=== PATIENT | female | born 1985 | race Caucasian/White ===

== ENCOUNTER → 2018-05-23 | Outpatient (CLI) | payer OTHER | LOC: M PAIN 14:00 | DX: M79.7 Fibromyalgia (principal); F32.9 Major depressive disorder, single episode, unspecified; F41.9 Anxiety disorder, unspecified; M54.5 Low back pain; Z79.899 Other long term (current) drug therapy; Z88.0 Allergy status to penicillin; Z88.6 Allergy status to analgesic agent | CPT/HCPCS: G0463 ==

== ENCOUNTER → 2018-10-18 | Outpatient (CLI) | payer OTHER ==
[~2018-10-18] MED LIST: CALCTAB22 OR; CLAR5CHW; CLAR5CHW OR; CLAR5CHW PO; DARV100T; DOCU10CA PO; FERR325T; FERR325T OR; IBUP600T26 PO; LYRI75CA OR; PHEN100T2 OR; PREG100CA OR; PREG50CA; SOMA350T OR; TRAM50TA2; TRAM50TA2 OR; ZOLO100T PO; ZYVO100T OR; [UNRECOGNIZED DRUG - OTHER] PO; prenatal vitamin OR
--- NOTE | 2018-11-01 00:56 | ECWPNPC ---
PATIENT NAME: CLARISSA ROMERO : 1985 GENDER: FEMALE VISIT DATE: 10/18/2018 DISCHARGE DATE: 10/18/18 1157 VISIT LOCKED DATE TIME: PHYSICIAN: ANTONELLA WARE RESOURCE: ANTONELLA WARE REASON FOR APPOINTMENT 1. FIBRO HISTORY OF PRESENT ILLNESS HISTORY OF PRESENT ILLNESS: HERE FOR F/U AND EVALUATION OF CHRONIC BACK PAIN/FIBROMYALGIA.USING TRAMADOL 50MG 1-2 TAB DAILY PRN FOR SEVERE PAIN.RATING PAIN VAS 7/10.REPORTING IMPROVED TOLERANCE TO WORK DUTIES.REPORTING IMPROVED ABILITY TO TOLERATE LIFTING HER BABY. PAIN THE PATIENT DESCRIBES THE PAIN... THE PATIENT DESCRIBES THE PAIN... FALL RISK SCREENING: SCREENING :NO FALLS REPORTED IN THE LAST YEAR CURRENT MEDICATIONS TAKING TRAMADOL HCL 50 MG TABLET 1 TABLET NEEDED ORALLY Q8H MDD3 NOT-TAKING CYMBALTA 30 MG CAPSULE DELAYED RELEASE PARTICLES 1 CAPSULE ORALLY ONCE A DAY NOT-TAKING CUSTOM DO NOT USE TRAMADOL 50 MG TABLET 1 TABLET ORALLY EVERY 4-6 HOURS NEEDED (PAIN CLINIC) NOT-TAKING LYRICA 75 MG CAPSULE 1 CAPSULE ORALLY ONCE A DAY (PAIN CLINIC) NOT-TAKING SOMA 350 MG 30 350 MG TABLET ONE TABLET ORALLY EVERY 8 HOURS NEEDED FOR PAIN(PAIN CLINIC) NOT-TAKING ZOLOFT NOT-TAKING TRAMADOL HCL 50 MG TABLET 1 TABLET NEEDED ORALLY Q8H PRN MDD3 MEDICATION LIST REVIEWED AND RECONCILED WITH THE PATIENT PAST MEDICAL HISTORY FIBROMYALGIA ARTHRITIS DEPRESSION ANXIETY POSSIBLE ULCERS LOW BACK PAIN MYOFASCIAL PAIN SYNDROME GENERALIZED JOINT PAIN ALLERGIES PENICILLIN (FOR ALLERGIES USE ONLY): NAUSEA/VOMITING - SIDE EFFECTS MOTRIN: HIVES - ALLERGY SURGICAL HISTORY 01/03 FAMILY HISTORY MOTHER: 1 BROTHER(S) , 1 SISTER(S) - HEALTHY. 1 SON(S) , 1 DAUGHTER(S) - HEALTHY. SOCIAL HISTORY GENERAL: TOBACCO USE ARE YOU A: NONSMOKER . LATEX QUESTIONNAIRE LATEX ALLERGY : HAVE YOU EVER DEVELOPED ANY TYPE OF REACTION AFTER HANDLING LATEX PRODUCTS SUCH RUBBER GLOVES, CONDOMS, DIAPHRAGMS, BALLOONS, SOCKS, OR UNDERWEAR?NO LATEX ALLERGY : HAVE YOU EVER DEVELOPED ANY TYPE OF REACTION DURING OR AFTER DENTAL APPOINTMENT, VAGINAL/RECTAL EXAMINATION, SURGICAL PROCEDURE, OR ANY OTHER EXPOSURE?NO LATEX RISK : HAVE YOU EVER HAD ANY DIFFICULTY BREATHING OR HIVES AFTER EATING OR HANDLING ANY FRUITS, OR VEGETABLES; SUCH KIWI, BANANAS, STONE FRUITS, OR CHESTNUTSNO LATEX RISK : DO YOU HAVE A PREVIOUS PERSONAL HISTORY OF MORE THAN NINE SURGERIES, SPINA BIFIDA, OR REPEATED CATHERTIZATIONS? NO LATEX RISK : ARE YOU FREQUENTLY EXPOSED TO LATEX PRODUCTS IN YOUR OCCUPATION?NO DATE ASKED : 10/18/2018 RECREATIONAL DRUG USE DRUG USE?NO BUDDHISM [id number] SIKHISM LANGUAGE LANGUAGES SPOKEN:MACANESE EDUCATION LEVEL OF EDUCATION:HIGH SCHOOL LEARNING BARRIERS / SPECIAL NEEDS ORIENTED TO PLAN OF CARE: PATIENT, PAIN MANAGEMENT PATIENT, ORIENTED TO PLAN OF CARE: PATIENT, PAIN MANAGEMENT PATIENT. 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 DIET: REGULAR. MARITAL STATUS: . OTHERS AT HOME: SPOUSE, CHILDREN. NEW PATIENT PAIN DIARY TODAY'S VISITNOTES FROM 0-10, WHAT LEVEL IS YOUR PAIN TODAY?0 PAIN CLINIC PFS, CLERGY, PUBLIC HEALTH REFERRALS PFS REFERRAL NEEDED?NO CLERGY REFERRAL NEEDED?NO PUBLIC HEALTH REFERRAL NEEDED?NO WAS THE PROVIDER NOTIFIED OF ANY PERTINENT INFO?NO HAS THE PATIENT BEEN EDUCATED REGARDING HIS/HER PLAN OF CARE?YES HAS THE PATIENT BEEN EDUCATED REGARDING PAIN, THE RISK FOR PAIN, THE IMPORTANCE OF EFFECTIVE PAIN MANAGEMENT, AND THE PAIN ASSESSMENT PROCESS?YES ADVANCE DIRECTIVE ADVANCE DIRECTIVE DISCUSSED WITH PATIENT:YES DECLINED HCP INFORMATION REVIEWED WITH PATIENT 10/18/18 1104 JS. HOSPITALIZATION/MAJOR DIAGNOSTIC PROCEDURE CHILD 01/03 REVIEW OF SYSTEMS REVIEWED BY: PROVIDER: ANTONELLA NELSON . CONSTITUTIONAL: ANY CHANGE IN YOUR MEDICAL CONDITION? NO . CHILLS NO . FEVER NO . INFECTION: DO YOU HAVE NEW INFECTIONS? NO . DO YOU HAVE HISTORY OF MRSA? NO . MUSCULOSKELETAL: ANY NEW PATTERNS OF PAIN OR NUMBNESS? NO . GASTROENTEROLOGY: ANY NEW CHANGE IN BOWEL CONTROL? NO . GENITOURINARY: ANY NEW CHANGE IN BLADDER CONTROL? NO . IS THERE A CHANCE YOU COULD BE ? NO . HEMATOLOGY/LYMPH: DO YOU TAKE ANY BLOOD THINNERS? (FOR EXAMPLE- COUMADIN, PLAVIX, AGGRENOX, PLATEL, PRADAXA, OR XARELTO) NO . WHEN WAS YOUR LAST DOSE? DATE: TIME: . NEUROLOGY: HAVE YOU FALLEN IN THE PAST 12 MONTHS? NO . ANY NEW EXTREMITY NUMBNESS OR WEAKNESS? NO . CARDIOLOGY: DO YOU HAVE A PACEMAKER OR DEFIBRILLATOR? NO . RESPIRATORY: HAVE YOU BEEN SICK IN THE PAST WEEK? NO . FEVER NO . FLU LIKE SYMPTOMS? NO . COUGH NO . INTEGUMENTARY: DO YOU HAVE ANY RASHES OR OPEN SORES? NO . ALLERGIC/IMMUNO: ARE YOU ALLERGIC TO IV DYE? NO . ANY NEW ALLERGIES? NO . PSYCHIATRIC: DO YOU HAVE THOUGHTS OF HURTING YOURSELF OR SOMEONE ELSE? NO . ARE YOU ABUSED, NEGLECTED, OR IN AN UNSAFE ENVIRONMENT? NO . ENDOCRINOLOGY: ARE YOU DIABETIC? NO . OTHER: DO YOU NEED ANY PRESCRIPTIONS? YES . IF YES, PLEASE LIST: ____TRAMADOL . ANY NEW PROBLEMS WITH YOUR MEDICATIONS? NO . WHEN DID YOU LAST EAT? ____ . WHEN DID YOU LAST DRINK? ____ . WHAT DID YOU LAST DRINK? ____ . NAME OF PERSON DRIVING YOU HOME? ____ . DO YOU HAVE ANY OTHER QUESTIONS OR CONCERNS NO . VITAL SIGNS WT 124.4 LBS, HT 63 IN, BMI 22.03 INDEX, BP 125/59 MM HG, HR 92 /MIN, RR 16 /MIN, TEMP 97.8 F, OXYGEN SAT % 98%, SAFE IN ENV? (Y/N) YES, NA INITIALS NM 10:52, REVIEWED BY: RUDI. EXAMINATION GENERAL EXAMINATION: GENERAL APPEARANCE:ALERT,NO ACUTE DISTRESS. PSYCHAFFECT NORMAL. LUNGS:LUNG RAMOS ARE CLEAR TO AUSCULTATION BILATERALLY. GOOD MOVEMENT OF AIR. HEART:S1, S2 IN A REGULAR RATE AND RHYTHM. NO SIGNIFICANT MURMURS, RUBS OR GALLOPS NOTED. MUSCULOSKELETAL:MUSCLE STRENGTH TESTING 5/5 BILATERAL UPPER/LOWER EXTREMITIES MULTIPLE AREAS OF TENDER SPOTS UPPER AND LOWER EXTREMITIES BILATERALLY INDICATIVE OF FIBROMYALGIA. NEUROLOGIC EXAM:NORMAL SENSATION TO LIGHT TOUCH UPPER/LOWER EXTREMITIES. HIP / THIGH: HIP: RIGHT. INSPECTION: NO EFFUSION, ECCHYMOSIS OR DEFORMITIES. PALPATION: TENDERNESS OVER TROCHANTERIC BURSA. ASSESSMENTS FIBROMYALGIA - M79.7 TREATMENT FIBROMYALGIA REFILL TRAMADOL HCL TABLET, 50 MG, 1 TABLET NEEDED, ORALLY, Q8H MDD3, 30 DAY(S), 45, REFILLS 2 MARY ELLEN HIP COMPLETE (AP/LAT)[id number] NOTES: ISTOP REGISTRY REVIEWED AND DEMONSTRATES COMPLLIANCE. BRINGS IN MEDICATIONS WHICH IS APPROPRIATE FOR WHAT WAS DISPENSED. , RISKS AND BENEFITS OF NARCOTIC/OPIOD MEDICATIONS WERE REVIEWED WITH PATIENT - THIS INCLUDES BUT IS NOT LIMITED TO RISK OF DEPENDANCE/DEVELOPMENT OF ADDICTION, MOOD DISTURBANCE AND DEPRESSION, OSTEOPOROSIS, HORMONAL AND LABIDAL CHANGES, RESPIRATORY DEPRESSION AND . PATIENT IS ADVISED NOT TO DRIVE OR DRINK ALCOHOL WHILE ON THESE MEDICATIONS. PROCEDURE CODES FA211 ESTABILISHED PATIENT [facility] CHARGE DISPOSITION & COMMUNICATION FOLLOW UP 2 MONTHS ELECTRONICALLY SIGNED BY ANTONELLA NELSON, LESLIE ON 10/31/2018 AT 04:40 PM EDT DISCLAIMER : THIS IS A VISIT SUMMARY EXTRACTED FROM THE [employer] CHART. IT IS NOT A COPY OF THE [employer] PROGRESS NOTE. MATTHEW
== END ==
LOC: M PAIN 10:00
PROVIDERS: ATTEND Nurse Practitioner Family
DX: M79.7 Fibromyalgia (principal); M19.90 Unspecified osteoarthritis, unspecified site; Z86.59 Personal history of other mental and behavioral disorders; Z88.0 Allergy status to penicillin; Z88.6 Allergy status to analgesic agent

== ENCOUNTER → 2018-12-15 | Outpatient (REF) | payer OTHER ==
[2018-12-15 21:11] LABS: APPEARANCE, URINE CLEAR (CLEAR); BACTERIA, URINE AUTO NEGATIVE (NEGATIVE); BILIRUBIN, URINE AUTO NEGATIVE (NEGATIVE); BLOOD, URINE BLOOD NEGATIVE (NEGATIVE); COLOR, URINE YELLOW (YELLOW); GLUCOSE, URINE (UA) AUTO NEGATIVE (NEGATIVE); KETONE, URINE AUTO TRACE mg/dL (NEGATIVE); LEUKOCYTE ESTERASE, URINE AUTO TRACE (NEGATIVE); NITRITE, URINE AUTO NEGATIVE (NEGATIVE); PROTEIN, URINE AUTO NEGATIVE (NEGATIVE); RBC, URINE AUTO 0 /HPF (0-3); SQUAMOUS EPITHELIAL CELL UR AU 1 /HPF (0-6); UROBILINOGEN, URINE AUTO 0.2 mg/dL (0.0-2.0); WBC, URINE AUTO 2 /HPF (0-3)
== END ==
LOC: M LAB REF 09:20
PROVIDERS: ATTEND Physician Assistant Medical
DX: N39.0 Urinary tract infection, site not specified (principal)

== ENCOUNTER → 2018-12-22 | Outpatient (CLI) | payer OTHER ==
--- NOTE | 2019-01-04 01:55 | ECWPNPC ---
PATIENT NAME: CLARISSA ROMERO : 1985 GENDER: FEMALE VISIT DATE: 12/22/2018 DISCHARGE DATE: 12/22/18 1608 VISIT LOCKED DATE TIME: PHYSICIAN: ANTONELLA WARE RESOURCE: ANTONELLA WARE REASON FOR APPOINTMENT 1. FIBRO HISTORY OF PRESENT ILLNESS HISTORY OF PRESENT ILLNESS: HERE FOR F/U AND EVALUATION OF CHRONIC BACK PAIN/FIBROMYALGIA.USING TRAMADOL 50MG 1-2 TAB DAILY PRN FOR SEVERE PAIN.RATING PAIN VAS 5/10.REPORTING IMPROVED TOLERANCE TO WORK DUTIES.REPORTING IMPROVED ABILITY TO TOLERATE LIFTING HER BABY. PAIN THE PATIENT DESCRIBES THE PAIN... THE PATIENT DESCRIBES THE PAIN... THE PATIENT DESCRIBES THE PAIN... FALL RISK SCREENING: SCREENING :NO FALLS REPORTED IN THE LAST YEAR CURRENT MEDICATIONS TAKING TRAMADOL HCL 50 MG TABLET 1 TABLET NEEDED ORALLY Q8H PRN MDD3 TAKING RESTASIS 0.05 % EMULSION 1 DROP INTO AFFECTED EYE OPHTHALMIC TWICE A DAY TAKING CIPRO 500 MG TABLET 1 TABLET ORALLY EVERY 12 HRS X 10 DAYS DISCONTINUED CYMBALTA 30 MG CAPSULE DELAYED RELEASE PARTICLES 1 CAPSULE ORALLY ONCE A DAY DISCONTINUED CUSTOM DO NOT USE TRAMADOL 50 MG TABLET 1 TABLET ORALLY EVERY 4-6 HOURS NEEDED (PAIN CLINIC) DISCONTINUED LYRICA 75 MG CAPSULE 1 CAPSULE ORALLY ONCE A DAY (PAIN CLINIC) DISCONTINUED SOMA 350 MG 30 350 MG TABLET ONE TABLET ORALLY EVERY 8 HOURS NEEDED FOR PAIN(PAIN CLINIC) DISCONTINUED ZOLOFT DISCONTINUED TRAMADOL HCL 50 MG TABLET 1 TABLET NEEDED ORALLY Q8H MDD3 MEDICATION LIST REVIEWED AND RECONCILED WITH THE PATIENT PAST MEDICAL HISTORY FIBROMYALGIA ARTHRITIS DEPRESSION ANXIETY POSSIBLE ULCERS LOW BACK PAIN MYOFASCIAL PAIN SYNDROME GENERALIZED JOINT PAIN ALLERGIES PENICILLIN (FOR ALLERGIES USE ONLY): NAUSEA/VOMITING - SIDE EFFECTS MOTRIN: HIVES - ALLERGY SURGICAL HISTORY 01/03 FAMILY HISTORY MOTHER: 1 BROTHER(S) , 1 SISTER(S) - HEALTHY. 1 SON(S) , 1 DAUGHTER(S) - HEALTHY. SOCIAL HISTORY GENERAL: TOBACCO USE ARE YOU A: NONSMOKER. OTHERS AT HOME: SPOUSE, CHILDREN. EDUCATION LEVEL OF EDUCATION:HIGH SCHOOL DIET: REGULAR. LANGUAGE LANGUAGES SPOKEN:SAUDI ARABIAN NEW PATIENT PAIN DIARY TODAY'S VISITNOTES FROM 0-10, WHAT LEVEL IS YOUR PAIN TODAY?0 RECREATIONAL DRUG USE DRUG USE?NO LEARNING BARRIERS / SPECIAL NEEDS ORIENTED TO PLAN OF CARE: PATIENT, PAIN MANAGEMENT PATIENT, ORIENTED TO PLAN OF CARE: PATIENT, PAIN MANAGEMENT PATIENT. PAIN CLINIC PFS, CLERGY, PUBLIC HEALTH REFERRALS PFS REFERRAL NEEDED?NO CLERGY REFERRAL NEEDED?NO PUBLIC HEALTH REFERRAL NEEDED?NO WAS THE PROVIDER NOTIFIED OF ANY PERTINENT INFO?NO HAS THE PATIENT BEEN EDUCATED REGARDING HIS/HER PLAN OF CARE?YES HAS THE PATIENT BEEN EDUCATED REGARDING PAIN, THE RISK FOR PAIN, THE IMPORTANCE OF EFFECTIVE PAIN MANAGEMENT, AND THE PAIN ASSESSMENT PROCESS?YES LATEX QUESTIONNAIRE LATEX ALLERGY : HAVE YOU EVER DEVELOPED ANY TYPE OF REACTION AFTER HANDLING LATEX PRODUCTS SUCH RUBBER GLOVES, CONDOMS, DIAPHRAGMS, BALLOONS, SOCKS, OR UNDERWEAR?NO LATEX ALLERGY : HAVE YOU EVER DEVELOPED ANY TYPE OF REACTION DURING OR AFTER DENTAL APPOINTMENT, VAGINAL/RECTAL EXAMINATION, SURGICAL PROCEDURE, OR ANY OTHER EXPOSURE?NO LATEX RISK : HAVE YOU EVER HAD ANY DIFFICULTY BREATHING OR HIVES AFTER EATING OR HANDLING ANY FRUITS, OR VEGETABLES; SUCH KIWI, BANANAS, STONE FRUITS, OR CHESTNUTSNO LATEX RISK : DO YOU HAVE A PREVIOUS PERSONAL HISTORY OF MORE THAN NINE SURGERIES, SPINA BIFIDA, OR REPEATED CATHERTIZATIONS? NO LATEX RISK : ARE YOU FREQUENTLY EXPOSED TO LATEX PRODUCTS IN YOUR OCCUPATION?NO DATE ASKED : 10/18/2018 ADVANCE DIRECTIVE ADVANCE DIRECTIVE DISCUSSED WITH PATIENT:YES DECLINED HCP INFORMATION [facility] [id number] [facility] MARITAL STATUS: . 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 REVIEWED WITH PATIENT 10/18/18 1104 JS. HOSPITALIZATION/MAJOR DIAGNOSTIC PROCEDURE CHILD 01/03 REVIEW OF SYSTEMS REVIEWED BY: PROVIDER: ANTONELLA NELSON . CONSTITUTIONAL: ANY CHANGE IN YOUR MEDICAL CONDITION? NO . CHILLS NO . FEVER NO . INFECTION: DO YOU HAVE NEW INFECTIONS? NO . DO YOU HAVE HISTORY OF MRSA? NO . MUSCULOSKELETAL: ANY NEW PATTERNS OF PAIN OR NUMBNESS? NO . GASTROENTEROLOGY: ANY NEW CHANGE IN BOWEL CONTROL? NO . GENITOURINARY: ANY NEW CHANGE IN BLADDER CONTROL? NO . IS THERE A CHANCE YOU COULD BE ? NO . HEMATOLOGY/LYMPH: DO YOU TAKE ANY BLOOD THINNERS? (FOR EXAMPLE- COUMADIN, PLAVIX, AGGRENOX, PLATEL, PRADAXA, OR XARELTO) NO . WHEN WAS YOUR LAST DOSE? DATE: TIME: . NEUROLOGY: HAVE YOU FALLEN IN THE PAST 12 MONTHS? NO . ANY NEW EXTREMITY NUMBNESS OR WEAKNESS? NO . CARDIOLOGY: DO YOU HAVE A PACEMAKER OR DEFIBRILLATOR? NO . RESPIRATORY: HAVE YOU BEEN SICK IN THE PAST WEEK? NO . FEVER NO . FLU LIKE SYMPTOMS? NO . COUGH NO . INTEGUMENTARY: DO YOU HAVE ANY RASHES OR OPEN SORES? NO . ALLERGIC/IMMUNO: ARE YOU ALLERGIC TO IV DYE? NO . ANY NEW ALLERGIES? NO . PSYCHIATRIC: DO YOU HAVE THOUGHTS OF HURTING YOURSELF OR SOMEONE ELSE? NO . ARE YOU ABUSED, NEGLECTED, OR IN AN UNSAFE ENVIRONMENT? NO . ENDOCRINOLOGY: ARE YOU DIABETIC? NO . OTHER: DO YOU NEED ANY PRESCRIPTIONS? NO . IF YES, PLEASE LIST: ____ . ANY NEW PROBLEMS WITH YOUR MEDICATIONS? NO . WHEN DID YOU LAST EAT? ____ . WHEN DID YOU LAST DRINK? ____ . WHAT DID YOU LAST DRINK? ____ . NAME OF PERSON DRIVING YOU HOME? ____ . DO YOU HAVE ANY OTHER QUESTIONS OR CONCERNS YES, I THINK I MAY HAVE ARTHRITIS WELL, I'M NOT SURE . VITAL SIGNS WT 125.2 LBS, HT 63 IN, BMI 22.18 INDEX, BP 107/72 MM HG, HR 100 /MIN, RR 18 /MIN, TEMP 98.1 F, OXYGEN SAT % 99%, NA INITIALS SC 15:00, REVIEWED BY: EM. EXAMINATION GENERAL EXAMINATION: GENERAL APPEARANCE:ALERT,NO ACUTE DISTRESS. PSYCHAFFECT NORMAL. LUNGS:LUNG RAMOS ARE CLEAR TO AUSCULTATION BILATERALLY. GOOD MOVEMENT OF AIR. HEART:S1, S2 IN A REGULAR RATE AND RHYTHM. NO SIGNIFICANT MURMURS, RUBS OR GALLOPS NOTED. MUSCULOSKELETAL:MUSCLE STRENGTH TESTING 5/5 BILATERAL UPPER/LOWER EXTREMITIES MULTIPLE AREAS OF TENDER SPOTS UPPER AND LOWER EXTREMITIES BILATERALLY INDICATIVE OF FIBROMYALGIA. NEUROLOGIC EXAM:NORMAL SENSATION TO LIGHT TOUCH UPPER/LOWER EXTREMITIES. ASSESSMENTS FIBROMYALGIA - M79.7 (PRIMARY) TREATMENT FIBROMYALGIA CONTINUE TRAMADOL HCL TABLET, 50 MG, 1 TABLET NEEDED, ORALLY, Q8H PRN MDD3 DISPOSITION & COMMUNICATION FOLLOW UP 3 MONTHS ELECTRONICALLY SIGNED BY LESLIE MUNOZ ON 01/02/2019 AT 08:08 AM EDT DISCLAIMER : THIS IS A VISIT SUMMARY EXTRACTED FROM THE [employer] CHART. IT IS NOT A COPY OF THE [employer] PROGRESS NOTE. MATTHEW
== END ==
LOC: M PAIN 14:30
PROVIDERS: ATTEND Nurse Practitioner Family
DX: M79.7 Fibromyalgia (principal); M19.90 Unspecified osteoarthritis, unspecified site; Z86.59 Personal history of other mental and behavioral disorders; Z88.0 Allergy status to penicillin; Z88.6 Allergy status to analgesic agent; Z79.899 Other long term (current) drug therapy

== ENCOUNTER → 2019-09-19 | Outpatient (CLI) | payer OTHER ==
--- NOTE | 2019-09-20 01:32 | ECWPNPC ---
PATIENT NAME: CLARISSA ROMERO : 1985 GENDER: FEMALE VISIT DATE: 09/19/2019 DISCHARGE DATE: 09/19/19 1417 VISIT LOCKED DATE TIME: PHYSICIAN: ANTONELLA WARE RESOURCE: ANTONELLA WARE REASON FOR APPOINTMENT 1. FOLLOW UP HISTORY OF PRESENT ILLNESS HISTORY OF PRESENT ILLNESS: HERE FOR FOLLOW-UP OF CHRONIC GENERALIZED PAIN ASSOCIATED WITH FIBROMYALGIA. IT HAS BEEN SEVERAL MONTHS SINCE HER LAST VISIT. STATES THAT SHE HAD TO GO OUT OF STATE TO TAKE CARE OF RELATIVES. INFORMED HER TODAY THAT IN ORDER TO CONTINUE WITH TRAMADOL FOR PERIODIC USE FOR PAIN SHE WOULD NEED TO BE SEEN EVERY 2 MONTHS AT OUR CLINIC. INFORMED HER THAT WE WOULD BE DOING URINE TOXICOLOGY'S WELL EXPECTING THAT SHE BRING HER PAIN MEDICATIONS TO EVERY VISIT. SHE HAS TRIED MULTIPLE DIFFERENT MEDICATION AND TREATMENTS FOR FIBROMYALGIA AND TRAMADOL IS THE ONLY MEDICINE THAT SHE CAN TOLERATE. CURRENTLY USING ONE TABLET AT NIGHTTIME AND POSSIBLY ANOTHER DURING THE DAY IF PAIN IS AGGRAVATED. INFORMED HER THAT WE WOULD BE RECOMMENDING THAT SHE USE TRAMADOL PERIODICALLY FOR SEVERE PAIN EPISODES ONLY. I'M NOT RECOMMENDING DAILY USE DUE TO PROBLEMS ASSOCIATED WITH CHRONIC DAILY NARCOTIC EXPOSURE AND TOLERANCE. RATING PAIN LEVEL 7/10 VAS. PAIN THE PATIENT DESCRIBES THE PAIN... FALL RISK SCREENING: SCREENING :NO FALLS REPORTED IN THE LAST YEAR CURRENT MEDICATIONS TAKING TRAMADOL HCL 50 MG TABLET 1 TABLET NEEDED ORALLY Q8H PRN MDD3 NOT-TAKING RESTASIS 0.05 % EMULSION 1 DROP INTO AFFECTED EYE OPHTHALMIC TWICE A DAY NOT-TAKING CIPRO 500 MG TABLET 1 TABLET ORALLY EVERY 12 HRS X 10 DAYS MEDICATION LIST REVIEWED AND RECONCILED WITH THE PATIENT PAST MEDICAL HISTORY FIBROMYALGIA ARTHRITIS POLYCYSTIC OVARIAN SYNDROME LOW BACK PAIN MYOFASCIAL PAIN SYNDROME GENERALIZED JOINT PAIN ALLERGIES PENICILLIN (FOR ALLERGIES USE ONLY): NAUSEA/VOMITING - SIDE EFFECTS MOTRIN: HIVES - ALLERGY SURGICAL HISTORY 01/03 FAMILY HISTORY MOTHER: 1 BROTHER(S) , 1 SISTER(S) - HEALTHY. 1 SON(S) , 1 DAUGHTER(S) - HEALTHY. SOCIAL HISTORY GENERAL: TOBACCO USE ARE YOU A:CURRENT SMOKER ARE YOU INTERESTED IN QUITTING?THINKING ABOUT QUITTING COUNSELED THE PATIENT ON SMOKING CESSATION, EDUCATION [id number]/25/2020 OTHERS AT HOME: SPOUSE, CHILDREN. EDUCATION LEVEL OF EDUCATION:HIGH SCHOOL DIET: REGULAR. LANGUAGE LANGUAGES SPOKEN:CANADIAN NEW PATIENT PAIN DIARY TODAY'S VISITNOTES FROM 0-10, WHAT LEVEL IS YOUR PAIN TODAY?0 RECREATIONAL DRUG USE DRUG USE?NO LEARNING BARRIERS / SPECIAL NEEDS ORIENTED TO PLAN OF CARE: PATIENT, PAIN MANAGEMENT PATIENT, ORIENTED TO PLAN OF CARE: PATIENT, PAIN MANAGEMENT PATIENT. PAIN CLINIC PFS, CLERGY, PUBLIC HEALTH REFERRALS PFS REFERRAL NEEDED?NO CLERGY REFERRAL NEEDED?NO PUBLIC HEALTH REFERRAL NEEDED?NO WAS THE PROVIDER NOTIFIED OF ANY PERTINENT INFO?NO HAS THE PATIENT BEEN EDUCATED REGARDING HIS/HER PLAN OF CARE?YES HAS THE PATIENT BEEN EDUCATED REGARDING PAIN, THE RISK FOR PAIN, THE IMPORTANCE OF EFFECTIVE PAIN MANAGEMENT, AND THE PAIN ASSESSMENT PROCESS?YES LATEX QUESTIONNAIRE LATEX ALLERGY : HAVE YOU EVER DEVELOPED ANY TYPE OF REACTION AFTER HANDLING LATEX PRODUCTS SUCH RUBBER GLOVES, CONDOMS, DIAPHRAGMS, BALLOONS, SOCKS, OR UNDERWEAR?NO LATEX ALLERGY : HAVE YOU EVER DEVELOPED ANY TYPE OF REACTION DURING OR AFTER DENTAL APPOINTMENT, VAGINAL/RECTAL EXAMINATION, SURGICAL PROCEDURE, OR ANY OTHER EXPOSURE?NO DATE ASKED : 10/18/2018 LATEX RISK : HAVE YOU EVER HAD ANY DIFFICULTY BREATHING OR HIVES AFTER EATING OR HANDLING ANY FRUITS, OR VEGETABLES; SUCH KIWI, BANANAS, STONE FRUITS, OR CHESTNUTSNO LATEX RISK : DO YOU HAVE A PREVIOUS PERSONAL HISTORY OF MORE THAN NINE SURGERIES, SPINA BIFIDA, OR REPEATED CATHERIZATIONS? NO LATEX RISK : ARE YOU FREQUENTLY EXPOSED TO LATEX PRODUCTS IN YOUR OCCUPATION?NO ADVANCE DIRECTIVE ADVANCE DIRECTIVE DISCUSSED WITH PATIENT:YES DECLINED HCP INFORMATION [facility] [id number] [employer] MARITAL STATUS: . 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 REVIEWED WITH PATIENT 10/18/18 1104 JS. HOSPITALIZATION/MAJOR DIAGNOSTIC PROCEDURE CHILD 01/03 REVIEW OF SYSTEMS REVIEWED BY: PROVIDER: ANTONELLA NELSON . CONSTITUTIONAL: ANY CHANGE IN YOUR MEDICAL CONDITION? NO . CHILLS NO . FEVER NO . INFECTION: DO YOU HAVE NEW INFECTIONS? NO . DO YOU HAVE HISTORY OF MRSA? NO . MUSCULOSKELETAL: ANY NEW PATTERNS OF PAIN OR NUMBNESS? NO . GASTROENTEROLOGY: ANY NEW CHANGE IN BOWEL CONTROL? NO . GENITOURINARY: ANY NEW CHANGE IN BLADDER CONTROL? NO . IS THERE A CHANCE YOU COULD BE ? NO . HEMATOLOGY/LYMPH: DO YOU TAKE ANY BLOOD THINNERS? (FOR EXAMPLE- COUMADIN, PLAVIX, AGGRENOX, PLATEL, PRADAXA, OR XARELTO) NO . WHEN WAS YOUR LAST DOSE? DATE: TIME: . NEUROLOGY: HAVE YOU FALLEN IN THE PAST 12 MONTHS? NO . ANY NEW EXTREMITY NUMBNESS OR WEAKNESS? NO . CARDIOLOGY: DO YOU HAVE A PACEMAKER OR DEFIBRILLATOR? NO . RESPIRATORY: HAVE YOU BEEN SICK IN THE PAST WEEK? NO . FEVER NO . FLU LIKE SYMPTOMS? NO . COUGH NO . INTEGUMENTARY: DO YOU HAVE ANY RASHES OR OPEN SORES? NO . ALLERGIC/IMMUNO: ARE YOU ALLERGIC TO IV DYE? NO . ANY NEW ALLERGIES? NO . PSYCHIATRIC: DO YOU HAVE THOUGHTS OF HURTING YOURSELF OR SOMEONE ELSE? NO . ARE YOU ABUSED, NEGLECTED, OR IN AN UNSAFE ENVIRONMENT? NO . ENDOCRINOLOGY: ARE YOU DIABETIC? NO . OTHER: DO YOU NEED ANY PRESCRIPTIONS? YES . IF YES, PLEASE LIST: TRAMADOL . ANY NEW PROBLEMS WITH YOUR MEDICATIONS? NO . WHEN DID YOU LAST EAT? ____ . WHEN DID YOU LAST DRINK? ____ . WHAT DID YOU LAST DRINK? ____ . NAME OF PERSON DRIVING YOU HOME? ____ . DO YOU HAVE ANY OTHER QUESTIONS OR CONCERNS NO . VITAL SIGNS WT 124.0 LBS, HT 63 IN, BMI 21.96 INDEX, BP 114/63 MM HG, HR 89 /MIN, RR 18 /MIN, TEMP 98.1 F, OXYGEN SAT % 99%, NA INITIALS AW 1311, REVIEWED BY: KG. EXAMINATION GENERAL EXAMINATION: GENERALAWAKE,ALERT ,PLEASANT . PSYCHAFFECT NORMAL . LUNGS:LUNG RAMOS ARE CLEAR TO AUSCULTATION BILATERALLY. GOOD MOVEMENT OF AIR . HEART:S1, S2 IN A REGULAR RATE AND RHYTHM. NO SIGNIFICANT MURMURS, RUBS OR GALLOPS NOTED . ASSESSMENTS FIBROMYALGIA - M79.7 (PRIMARY) CHRONIC PRESCRIPTION OPIATE USE - Z79.891 TREATMENT FIBROMYALGIA CONTINUE TRAMADOL HCL TABLET, 50 MG, 1 TABLET NEEDED, ORALLY, Q8H PRN MDD3 #45 TAB SHOULD LAST 30 DAYS, 30 DAYS, 45, REFILLS 2 NOTES: ISTOP REGISTRY REVIEWED AND DEMONSTRATES COMPLLIANCE. (REF # ) BRINGS IN MEDICATIONS WHICH IS APPROPRIATE FOR WHAT WAS DISPENSED. RECENT URINE TOXICOLOGY REVIEWED. NO UNAUTHORIZED MEDICATIONS. NO ILLICIT SUBSTANCES AND PRESCRIBED MEDICATIONS WERE PRESENT. URINE TOX TODAY, [facility] NARCOTIC AGREEMENT : 1) KEEP PAIN MEDS IN THEIR ORIGINAL BOTTLES AND ANY WEEKLY PLANNERS ARE TO BE BROUGHT TO THE PAIN CENTER AT EVERY VISIT. 2) THE PATIENT IS NOT TO INCREASE DOSING OR TIMING OF THEIR PAIN MEDICATION WITHOUT SPECIFIC DIRECTION OF THEIR PAIN CENTERPROVIDER (NOT ER OR OTHER PROVIDERS). 3) ALL PAIN MEDS ARE TO BE KEPT SECURED, IN A LOCKED BOX. 4) NO PAIN MEDS ARE TO BE SHARED WITH ANY OTHER PERSON FOR ANY REASON. 5) NO PAIN MEDS MAY BE TAKEN FROM ANY FRIENDS OR RELATIVES FOR ANY REASON 6) NO MEDS OR SUBSTANCES WHICH ARE NOT LEGAL ARE TO BE USED- NO MARIJUANA, NO COCAINE, AMPHETAMINES, HEROIN, OR OTHERS ARE EVER TO BE USED. 7)URINE TESTING IS DONE TO ACCOUNT FOR MEDS AND SUBSTANCES BEING TAKEN AND WILL BE DONE RANDOMLY., RISKS OF NARCOTIC/OPIOD MEDICATIONS INCLUDES BUT IS NOT LIMITED TO RISK OF DEPENDANCE/DEVELOPMENT OF ADDICTION, MOOD DISTURBANCE AND DEPRESSION, OSTEOPOROSIS, HORMONAL AND LABIDAL CHANGES, RESPIRATORY DEPRESSION AND . PATIENT IS ADVISED NOT TO DRIVE OR DRINK ALCOHOL WHILE ON THESE MEDICATIONS. PROCEDURE CODES FA211 ESTABILISHED PATIENT [facility] FACILITY CHARGE DISPOSITION & COMMUNICATION FOLLOW UP 2 MONTHS (REASON: MED MGMNT) ELECTRONICALLY SIGNED BY LESLIE MUNOZ ON 09/19/2019 AT 04:19 PM EST DISCLAIMER : THIS IS A VISIT SUMMARY EXTRACTED FROM THE [employer] CHART. IT IS NOT A COPY OF THE [employer] PROGRESS NOTE. MATTHEW
== END ==
LOC: M PAIN 13:15
PROVIDERS: ATTEND Nurse Practitioner Family
DX: M79.7 Fibromyalgia (principal); Z79.891 Long term (current) use of opiate analgesic

== ENCOUNTER → 2019-11-16 | Outpatient (CLI) | payer OTHER ==
--- NOTE | 2019-11-18 02:23 | ECWPNPC ---
PATIENT NAME: CLARISSA ROMERO : 1985 GENDER: FEMALE VISIT DATE: 11/16/2019 DISCHARGE DATE: 11/16/19 1032 VISIT LOCKED DATE TIME: PHYSICIAN: ANTONELLA WARE RESOURCE: ANTONELLA WARE REASON FOR APPOINTMENT 1. 2 MONTHS - CALLED AT 1122 WITH NO ANSWER AND NO VOICEMAIL TO LEAVE MESSAGE HISTORY OF PRESENT ILLNESS HISTORY OF PRESENT ILLNESS: PATIENT HAS AGREED TO A TELEPHONE VISIT TODAY. SUFFERS FROM CHRONIC PAIN ASSOCIATED WITH FIBROMYALGIA. CURRENTLY USING TRAMADOL 50 MG PERIODICALLY FOR SEVERE PAIN EPISODES, WHICH PATIENT FINDS HELPFUL. USING ALTERNATE METHODS FOR PAIN CONTROL TO INCLUDE HEAT AND EXERCISE. RATING PAIN LEVEL A 7/10 VAS. PAIN THE PATIENT DESCRIBES THE PAIN... FALL RISK SCREENING: SCREENING :NO FALLS REPORTED IN THE LAST YEAR CURRENT MEDICATIONS TAKING TRAMADOL HCL 50 MG TABLET 1 TABLET NEEDED ORALLY Q8H PRN MDD3 #45 TAB SHOULD LAST 30 DAYS NOT-TAKING RESTASIS 0.05 % EMULSION 1 DROP INTO AFFECTED EYE OPHTHALMIC TWICE A DAY NOT-TAKING CIPRO 500 MG TABLET 1 TABLET ORALLY EVERY 12 HRS X 10 DAYS MEDICATION LIST REVIEWED AND RECONCILED WITH THE PATIENT PAST MEDICAL HISTORY FIBROMYALGIA ARTHRITIS POLYCYSTIC OVARIAN SYNDROME LOW BACK PAIN MYOFASCIAL PAIN SYNDROME GENERALIZED JOINT PAIN ALLERGIES PENICILLIN (FOR ALLERGIES USE ONLY): NAUSEA/VOMITING - SIDE EFFECTS MOTRIN: HIVES - ALLERGY SURGICAL HISTORY 01/03 FAMILY HISTORY MOTHER: 1 BROTHER(S) , 1 SISTER(S) - HEALTHY. 1 SON(S) , 1 DAUGHTER(S) - HEALTHY. SOCIAL HISTORY GENERAL: TOBACCO USE ARE YOU A:CURRENT SMOKER ARE YOU INTERESTED IN QUITTING?NOT READY TO QUIT COUNSELED THE PATIENT ON SMOKING EFFECTS, EDUCATION [id number]/23/2020 PATIENT COUNSELED ON THE DANGERS OF TOBACCO USE AND URGED TO QUIT:11/16/2019 LATEX QUESTIONNAIRE LATEX ALLERGY : HAVE YOU EVER DEVELOPED ANY TYPE OF REACTION AFTER HANDLING LATEX PRODUCTS SUCH RUBBER GLOVES, CONDOMS, DIAPHRAGMS, BALLOONS, SOCKS, OR UNDERWEAR?NO LATEX ALLERGY : HAVE YOU EVER DEVELOPED ANY TYPE OF REACTION DURING OR AFTER DENTAL APPOINTMENT, VAGINAL/RECTAL EXAMINATION, SURGICAL PROCEDURE, OR ANY OTHER EXPOSURE?NO LATEX RISK : HAVE YOU EVER HAD ANY DIFFICULTY BREATHING OR HIVES AFTER EATING OR HANDLING ANY FRUITS, OR VEGETABLES; SUCH KIWI, BANANAS, STONE FRUITS, OR CHESTNUTSNO LATEX RISK : DO YOU HAVE A PREVIOUS PERSONAL HISTORY OF MORE THAN NINE SURGERIES, SPINA BIFIDA, OR REPEATED CATHERIZATIONS? NO LATEX RISK : ARE YOU FREQUENTLY EXPOSED TO LATEX PRODUCTS IN YOUR OCCUPATION?NO DATE ASKED : 11/16/2019 ALCOHOL SCREENING DID YOU HAVE A DRINK CONTAINING ALCOHOL IN THE PAST YEAR?NO POINTS0 INTERPRETATIONNEGATIVE RECREATIONAL DRUG USE DRUG USE?NO SIKHISM [id number] MANDAEN LANGUAGE LANGUAGES SPOKEN:VIETNAMESE EDUCATION LEVEL OF EDUCATION:HIGH SCHOOL LEARNING BARRIERS / SPECIAL NEEDS ORIENTED TO PLAN OF CARE: PATIENT, PAIN MANAGEMENT PATIENT, ORIENTED TO PLAN OF CARE: PATIENT, PAIN MANAGEMENT PATIENT. 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 DIET: REGULAR. MARITAL STATUS: . OTHERS AT HOME: SPOUSE, CHILDREN. NEW PATIENT PAIN DIARY TODAY'S VISITNOTES 11/16/2019 PATIENT DESCRIBES PAIN :ACHING, HAVE IT ALL THE TIME, TENDER FROM 0-10, WHAT LEVEL IS YOUR PAIN TODAY?7 PAIN CLINIC PFS, CLERGY, PUBLIC HEALTH REFERRALS PFS REFERRAL NEEDED?NO CLERGY REFERRAL NEEDED?NO PUBLIC HEALTH REFERRAL NEEDED?NO WAS THE PROVIDER NOTIFIED OF ANY PERTINENT INFO?NO HAS THE PATIENT BEEN EDUCATED REGARDING HIS/HER PLAN OF CARE?YES HAS THE PATIENT BEEN EDUCATED REGARDING PAIN, THE RISK FOR PAIN, THE IMPORTANCE OF EFFECTIVE PAIN MANAGEMENT, AND THE PAIN ASSESSMENT PROCESS?YES ADVANCE DIRECTIVE ADVANCE DIRECTIVE DISCUSSED WITH PATIENT:YES DECLINED HCP INFORMATION HOSPITALIZATION/MAJOR DIAGNOSTIC PROCEDURE CHILD 01/03 REVIEW OF SYSTEMS REVIEWED BY: PROVIDER: ANTONELLA NELSON . CONSTITUTIONAL: ANY CHANGE IN YOUR MEDICAL CONDITION? NO . CHILLS NO . FEVER NO . INFECTION: DO YOU HAVE NEW INFECTIONS? NO . DO YOU HAVE HISTORY OF MRSA? NO . MUSCULOSKELETAL: ANY NEW PATTERNS OF PAIN OR NUMBNESS? NO . GASTROENTEROLOGY: ANY NEW CHANGE IN BOWEL CONTROL? NO . GENITOURINARY: ANY NEW CHANGE IN BLADDER CONTROL? NO . IS THERE A CHANCE YOU COULD BE ? NO . HEMATOLOGY/LYMPH: DO YOU TAKE ANY BLOOD THINNERS? (FOR EXAMPLE- COUMADIN, PLAVIX, AGGRENOX, PLATEL, PRADAXA, OR XARELTO) NO . WHEN WAS YOUR LAST DOSE? DATE: TIME: . NEUROLOGY: HAVE YOU FALLEN IN THE PAST 12 MONTHS? NO . ANY NEW EXTREMITY NUMBNESS OR WEAKNESS? NO . CARDIOLOGY: DO YOU HAVE A PACEMAKER OR DEFIBRILLATOR? NO . RESPIRATORY: HAVE YOU BEEN SICK IN THE PAST WEEK? NO . FEVER NO . FLU LIKE SYMPTOMS? NO . COUGH NO . INTEGUMENTARY: DO YOU HAVE ANY RASHES OR OPEN SORES? NO . ALLERGIC/IMMUNO: ARE YOU ALLERGIC TO IV DYE? NO . ANY NEW ALLERGIES? NO . PSYCHIATRIC: DO YOU HAVE THOUGHTS OF HURTING YOURSELF OR SOMEONE ELSE? NO . ARE YOU ABUSED, NEGLECTED, OR IN AN UNSAFE ENVIRONMENT? NO . ENDOCRINOLOGY: ARE YOU DIABETIC? NO . OTHER: DO YOU NEED ANY PRESCRIPTIONS? NO . IF YES, PLEASE LIST: ____ . ANY NEW PROBLEMS WITH YOUR MEDICATIONS? NO . WHEN DID YOU LAST EAT? ____ . WHEN DID YOU LAST DRINK? ____ . WHAT DID YOU LAST DRINK? ____ . NAME OF PERSON DRIVING YOU HOME? ____ . DO YOU HAVE ANY OTHER QUESTIONS OR CONCERNS NO . ASSESSMENTS FIBROMYALGIA - M79.7 (PRIMARY) TREATMENT FIBROMYALGIA REFILL TRAMADOL HCL TABLET, 50 MG, 1 TABLET NEEDED, ORALLY, Q8H PRN MDD3 #45 TAB SHOULD LAST 30 DAYS, 30 DAYS, 45, REFILLS 2 NOTES: ISTOP REGISTRY REVIEWED AND DEMONSTRATES COMPLLIANCE. ADVISED TO CONTINUE HOME EXERCISE AND STRETCHING. CONTINUE USE OF TRAMADOL PERIODICALLY FOR SEVERE PAIN EPISODES. TOTAL TIME SPENT DURING TELEPHONE VISIT WAS APPROXIMATELY 11 MINUTES. DISPOSITION & COMMUNICATION FOLLOW UP 2 MONTHS (REASON: MED MGMNT/URINE TOX) ELECTRONICALLY SIGNED BY LESLIE MUNOZ ON 11/17/2019 AT 02:35 PM EDT DISCLAIMER : THIS IS A VISIT SUMMARY EXTRACTED FROM THE [employer] CHART. IT IS NOT A COPY OF THE [employer] PROGRESS NOTE. MATTHEW
== END ==
LOC: M PAIN 11:30
PROVIDERS: ATTEND Nurse Practitioner Family
DX: M79.7 Fibromyalgia (principal); F17.210 Nicotine dependence, cigarettes, uncomplicated; Z79.891 Long term (current) use of opiate analgesic; Z88.0 Allergy status to penicillin; Z88.6 Allergy status to analgesic agent

== ENCOUNTER → 2020-05-30 | Outpatient (CLI) | payer OTHER ==
--- NOTE | 2020-05-31 23:14 | ECWPNPC ---
PATIENT NAME: CLARISSA ROMERO : 1985 GENDER: FEMALE VISIT DATE: 05/30/2020 DISCHARGE DATE: 05/30/20921 VISIT LOCKED DATE TIME: PHYSICIAN: ANTONELLA WARE RESOURCE: ANTONELLA WARE REASON FOR APPOINTMENT 1. F/U PATIENT WAS WAITING IN LINE HISTORY OF PRESENT ILLNESS DEPRESSION SCREENING: PHQ-2 (2015 EDITION) LITTLE INTEREST OR PLEASURE IN DOING THINGS?NOT AT ALL FEELING DOWN, DEPRESSED, OR HOPELESS?NOT AT ALL TOTAL SCORE0 GENERAL: -. FALL RISK SCREENING: SCREENING :NO FALLS REPORTED IN THE LAST YEAR NONE PAIN SCREENING: PATIENT HAS A COMPLAINT OF ACUTE OR CHRONIC PAIN :YES LOCATION OF PAIN:OTHER: FIBRO INTENSITY OF PAIN (SCALE OF 1 TO 10):5 WHAT DOES YOUR PAIN FEEL LIKE:CONTINOUS DURATION:CONTINOUS PAIN IS INCREASED BY:OTHERS PAIN IS DECREASED BY:USE OF PAIN MEDICATIONS NURSING NOTE: -. PAIN CENTER INTAKE QUESTIONS: DO YOU HAVE A HISTORY OF MRSA? :NO DO YOU TAKE A BLOOD THINNERS? :NO DO YOU HAVE ANY BLEEDING DISORDERS? :NO ANY NEW NUMBNESS OR WEAKNESS IN YOUR LEGS OR ARMS? :NO ANY PACEMAKER,DEFIBRILLATOR, OR DORSAL COLUMN STIMULATOR? :NO DO YOU HAVE ANY RASHES OR OPEN SORES? :NO ARE YOU ALLERGIC TO IV DYE? :NO ARE YOU DIABETIC? :NO ANY NEW PROBLEMS WITH YOUR MEDICATIONS? :NO HAVE YOU RECEIVED A VACCINE IN THE PAST 30 DAYS? :NO DO YOU PLAN TO RECEIVE A VACCINE IN THE NEXT 21 DAYS? :NO DO YOU NEED ANY PRESCRIPTION? :NO DO YOU TAKE ANY IMMUNOSUPPRESSIVE MEDICATIONS? :NO IS THERE A CHANCE YOU COULD BE ? :NO ARE YOU BREAST FEEDING? :NO HISTORY OF PRESENT ILLNESS: HERE FOR ROUTINE 3 MONTH FOLLOW-UP AND MEDICATION MANAGEMENT. SUFFERS FROM CHRONIC PAIN ASSOCIATED WITH FIBROMYALGIA. CURRENTLY USING TRAMADOL 50 MG PERIODICALLY FOR SEVERE PAIN EPISODES, WHICH PATIENT FINDS HELPFUL. USING ALTERNATE METHODS FOR PAIN CONTROL TO INCLUDE HEAT AND EXERCISE. RATING PAIN LEVEL A 7/10 VAS. PAIN THE PATIENT DESCRIBES THE PAIN... CURRENT MEDICATIONS TAKING TRAMADOL HCL 50 MG TABLET 1 TABLET NEEDED ORALLY Q8H PRN MDD3 #45 TAB SHOULD LAST 30 DAYS NOT-TAKING RESTASIS 0.05 % EMULSION 1 DROP INTO AFFECTED EYE OPHTHALMIC TWICE A DAY NOT-TAKING CIPRO 500 MG TABLET 1 TABLET ORALLY EVERY 12 HRS X 10 DAYS MEDICATION LIST REVIEWED AND RECONCILED WITH THE PATIENT PAST MEDICAL HISTORY FIBROMYALGIA ARTHRITIS POLYCYSTIC OVARIAN SYNDROME LOW BACK PAIN MYOFASCIAL PAIN SYNDROME GENERALIZED JOINT PAIN ALLERGIES PENICILLIN (FOR ALLERGIES USE ONLY): NAUSEA/VOMITING - SIDE EFFECTS MOTRIN: HIVES - ALLERGY SURGICAL HISTORY 01/03 FAMILY HISTORY MOTHER: 1 BROTHER(S) , 1 SISTER(S) - HEALTHY. 1 SON(S) , 1 DAUGHTER(S) - HEALTHY. SOCIAL HISTORY GENERAL: TOBACCO USE ARE YOU A:CURRENT SMOKER ARE YOU INTERESTED IN QUITTING?NOT READY TO QUIT PATIENT COUNSELED ON THE DANGERS OF TOBACCO USE AND URGED TO QUIT:11/16/2019 COUNSELED THE PATIENT ON SMOKING EFFECTS, EDUCATION [id number]/23/2020 LATEX QUESTIONNAIRE LATEX ALLERGY : HAVE YOU EVER DEVELOPED ANY TYPE OF REACTION AFTER HANDLING LATEX PRODUCTS SUCH RUBBER GLOVES, CONDOMS, DIAPHRAGMS, BALLOONS, SOCKS, OR UNDERWEAR?NO LATEX ALLERGY : HAVE YOU EVER DEVELOPED ANY TYPE OF REACTION DURING OR AFTER DENTAL APPOINTMENT, VAGINAL/RECTAL EXAMINATION, SURGICAL PROCEDURE, OR ANY OTHER EXPOSURE?NO LATEX RISK : HAVE YOU EVER HAD ANY DIFFICULTY BREATHING OR HIVES AFTER EATING OR HANDLING ANY FRUITS, OR VEGETABLES; SUCH KIWI, BANANAS, STONE FRUITS, OR CHESTNUTSNO LATEX RISK : DO YOU HAVE A PREVIOUS PERSONAL HISTORY OF MORE THAN NINE SURGERIES, SPINA BIFIDA, OR REPEATED CATHERIZATIONS? 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 DIET: REGULAR. MARITAL STATUS: . OTHERS AT HOME: SPOUSE, CHILDREN. TODAY'S VISITNOTES 11/16/2019 PATIENT DESCRIBES PAIN :ACHING, HAVE IT ALL THE TIME, TENDER FROM 0-10, WHAT LEVEL IS YOUR PAIN TODAY?7 PAIN CLINIC PFS, CLERGY, PUBLIC HEALTH REFERRALS PFS REFERRAL NEEDED?NO CLERGY REFERRAL NEEDED?NO PUBLIC HEALTH REFERRAL NEEDED?NO WAS THE PROVIDER NOTIFIED OF ANY PERTINENT INFO?NO HAS THE PATIENT BEEN EDUCATED REGARDING HIS/HER PLAN OF CARE?YES HAS THE PATIENT BEEN EDUCATED REGARDING PAIN, THE RISK FOR PAIN, THE IMPORTANCE OF EFFECTIVE PAIN MANAGEMENT, AND THE PAIN ASSESSMENT PROCESS?YES ADVANCE DIRECTIVE ADVANCE DIRECTIVE DISCUSSED WITH PATIENT:YES DECLINED HCP INFORMATION HOSPITALIZATION/MAJOR DIAGNOSTIC PROCEDURE CHILD 01/03 REVIEW OF SYSTEMS CONSTITUTIONAL: ANY RECENT FEVER NO . CHILLS NO . WEIGHT CHANGE OF UNKNOWN REASONS NO . GASTROENTEROLOGY: NEW UNEXPLAINABLE CHANGES IN BOWEL CONTROL NO . CONSTIPATION NO . GENITOURINARY: ANY NEW CHANGE IN BLADDER CONTROL? NO . NEUROLOGY: NEW ONSET DIZZINESS OR NEUROLOGICAL CHANGES NOT MENTIONED NO . NEW NUMBNESS OR PAIN PATTERNS NOT MENTIONED AND PERTINENT TO TODAY'S VISIT NO . CARDIOLOGY: NEW CHEST PRESSURE NO . NEW CHEST PAIN NO . RESPIRATORY: UNEXPLAINABLE COUGH NO . NEW SHORTNESS OF BREATH NO . VITAL SIGNS WT 140.8 LBS, HT 63 IN, BMI 24.94 INDEX, BP 116/66 MM HG, HR 104 /MIN, RR 18 /MIN, TEMP 98.3 F, OXYGEN SAT % 99%, SAFE IN ENV? (Y/N) YES, NA INITIALS AW 0849, REVIEWED BY: RUDI. EXAMINATION GENERAL EXAMINATION: GENERALAWAKE,ALERT ,PLEASANT . PSYCHAFFECT NORMAL . LUNGS:LUNG RAMOS ARE CLEAR TO AUSCULTATION BILATERALLY. GOOD MOVEMENT OF AIR . HEART:S1, S2 IN A REGULAR RATE AND RHYTHM. NO SIGNIFICANT MURMURS, RUBS OR GALLOPS NOTED . ASSESSMENTS FIBROMYALGIA - M79.7 (PRIMARY) CHRONIC PRESCRIPTION OPIATE USE - Z79.891 TREATMENT FIBROMYALGIA NOTES: CONTINUE USE OF TRAMADOL 50 MG NEEDED FOR SEVERE PAIN EPISODES. FOLLOW-UP IS SCHEDULED IN 3 MONTHS. PATIENT IS REMINDED TO BRING HER MEDICATIONS TO FOLLOW UP. , ISTOP REGISTRY REVIEWED AND DEMONSTRATES COMPLLIANCE. PROCEDURE CODES FA211 ESTABILISHED PATIENT [facility] CHARGE DISPOSITION & COMMUNICATION FOLLOW UP 3 MONTHS (REASON: MEDICATION MANAGEMENT/REVIEW U TOX) ELECTRONICALLY SIGNED BY LESLIE MUNOZ ON 05/31/2020 AT 09:43 AM EST DISCLAIMER : THIS IS A VISIT SUMMARY EXTRACTED FROM THE [employer] CHART. IT IS NOT A COPY OF THE [employer] PROGRESS NOTE. MATTHEW
== END ==
LOC: M PAIN 08:15
PROVIDERS: ATTEND Nurse Practitioner Family
DX: M79.7 Fibromyalgia (principal); F17.210 Nicotine dependence, cigarettes, uncomplicated; Z88.0 Allergy status to penicillin; Z79.891 Long term (current) use of opiate analgesic; Z88.6 Allergy status to analgesic agent

== ENCOUNTER 2020-08-07 19:53 | Emergency (ER) | payer OTHER ==
[~2020-08-07] VITALS: Ht 160 cm; Wt 63.6 kg
--- OUTSIDE RECORDS SUMMARY | 2020-08-07 20:00 | CCD ---
Author Author [facility] Organization [facility] Address Unknown Phone Unavailable Care Team Providers Care Combination Welder Name Role Phone Joy Robins Unavailable PROBLEMS Type Condition ICD9-CM Code [id number] Code Onset Dates Condition S tatus SNOMED Code Notes Problem Chronic prescription opiate use Z79.899 Active 130537953 Problem Fibromyalgia M79.7 Active 03352570 ALLERGIES Allergen (clinical drug ingredient) Drug/Non Drug Allergy do cumented on EMR Reaction Allergy Type Onset Date Status Penicillin (For Allergies Use Only) Nausea/Vomiting Drug A llergy Active Motrin hives Drug Allergy Active ENCOUNTERS from 1985 to 2020-05-31 Encounter Location Date Provider Diagnosis [facility] [address] [place] [phone] May, Joy Robins Fibromyalgia M79.7 and Chronic prescript ion opiate use Z79.891 IMMUNIZATIONS No Information SOCIAL HISTORY Tobacco Use: Social History Observation Description Date Details (start date - stop date) Current Smoker Sex Assigned At : Social History Observation Description Sex Assigned At Unknown Education: Question Answer Notes Level of Education: High School Language: Question Answer Notes Languages spoken: Spanish Episcopal: Question Answer Notes Episcopal 08 Jain Alcohol Screening: Question Answer Notes Did you have a drink containing alcohol in the past year? No Points 0 Interpretation Negative Tobacco Use: Question Answer Notes Are you a: current smoker Patient counseled on the dangers of tobacco use and urged to quit: 11/16/2019 Are you interested in quitting? Not ready to quit Counseled the patient on smoking effects, education provided 11/16/2019 REASON FOR REFERRAL No Information VITAL SIGNS Weight 140.8 lbs May, Height 63 in May, BMI 24.94 kg/m2 May, Heart Rate 104 /min May, Respiratory Rate 18 /min May, Temperature 98.3 degrees Fahrenheit May, Oximetry 99% May, Blood pressure systolic 116 mm Hg May, Blood pressure diastolic 66 mm Hg May, MEDICATIONS Medication SIG (Take, Route, Frequency, Duration) Start Date En d Date Status Restasis 0.05 % 1 drop into affected eye Ophthalmic Twice a day Not-Taking Tramadol HCl 50 MG 1 tablet as needed Orally q8 h prn mdd3 #45 tab should last 30 days for 30 days Feb, Active Cipro 500 MG 1 tablet Orally every 12 hrs x 10 Days Not-Taking PROCEDURES No Information RESULTS No Results REASON FOR VISIT F/U patient was waiting in line MEDICAL (GENERAL) HISTORY Type Description Date Medical History Fibromyalgia Medical History Arthritis Medical History polycystic ovarian syndrome Medical History low back pain Medical History myofascial pain syndrome Medical History generalized joint pain Surgical History 01/03 Hospitalization History child 01/03 Goals Section No Information Health Concerns No Information MEDICAL EQUIPMENT No Information MENTAL STATUS No Information FUNCTIONAL STATUS No Information ASSESSMENTS Encounter Date Diagnosis Notes May, Chronic prescription opiate use (ICD-10 - Z79.891) May, Fibromyalgia (ICD-10 - M79.7) PLAN OF TREATMENT Treatment Notes Assessment Notes Clinical Notes Fibromyalgia Continue use of tramadol 50 mg as needed for severe pain episodes. Follow-up is scheduled in 3 months. Patient is reminded to bring her medications to follow up., ISTOP registry reviewed and demonstrates complliance. Next Appt Details 3 Months Reason:medication management/re view U tox Provider Name:Joy Robins, 2020-08-30 09 :00:00 AM, [address] [place], [address], Follow Up:3 Monthsmedication management/review U tox Insurance Providers Payer Name Payer Address Payer Phone Insured Name Patient Relati onship to Insured Coverage Start Date Coverage End Date [facility] [facility] [address] [facility] [phone] CLARISSA ROMERO
--- OUTSIDE RECORDS SUMMARY | 2020-08-07 20:00 | CCD ---
Author Author [facility] Organization [facility] Address Unknown Phone Unavailable Care Team Providers Care Public Health Staff Nurse Name Role Phone Joy Robins Unavailable PROBLEMS Type Condition ICD9-CM Code [id number] Code Onset Dates Condition S tatus SNOMED Code Notes Problem Chronic prescription opiate use Z79.899 Active 383882439 Problem Fibromyalgia M79.7 Active 69257511 ALLERGIES Allergen (clinical drug ingredient) Drug/Non Drug Allergy do cumented on EMR Reaction Allergy Type Onset Date Status Penicillin (For Allergies Use Only) Nausea/Vomiting Drug A llergy Active Motrin hives Drug Allergy Active ENCOUNTERS from 1985 to 2020-06-05 Encounter Location Date Provider Diagnosis [facility] [address] [place] [phone] May, Joy Robins Fibromyalgia M79.7 IMMUNIZATIONS No Information SOCIAL HISTORY Tobacco Use: Social History Observation Description Date Details (start date - stop date) Current Smoker Sex Assigned At : Social History Observation Description Sex Assigned At Unknown Education: Question Answer Notes Level of Education: High School Language: Question Answer Notes Languages spoken: Mohawk Latter-Day: Question Answer Notes Latter-Day 08 Restorationist Alcohol Screening: Question Answer Notes Did you [...] REASON FOR REFERRAL No Information VITAL SIGNS No information MEDICATIONS Medication SIG (Take, Route, Frequency, Duration) [...] Information RESULTS No Results REASON FOR VISIT refill tramadol MEDICAL (GENERAL) HISTORY Type Description Date Medical [...] Information ASSESSMENTS Encounter Date Diagnosis Notes May, Fibromyalgia (ICD-10 - M79.7) PLAN OF TREATMENT Medication Medication Name Sig Start Date Stop Date Tramadol HCl 50 MG 1 tablet as needed Orally q8 h prn mdd3 #45 tab should last 30 days for 30 days Feb, Next Appt Details Provider Name:Joy Robins, 2020-08-30 09 :00:00 AM, [address] [place], [phone], Insurance Providers Payer Name Payer Address Payer Phone Insured Name Patient Relati onship to Insured Coverage Start Date Coverage End Date [facility] [employer] [facility] [address] [facility] [phone] CLARISSA ROMERO
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
[2020-08-07] MEDS ORDERED: TRAM50TA2 (20:06)
[2020-08-07] MEDS ORDERED: IBUP-1022 (20:06)
[2020-08-07] MEDS ORDERED: SM P325T2 (20:06)
--- NOTE | 2020-08-07 21:24 | REPVR ---
PROCEDURE INFORMATION: Exam: XR Right Knee Exam date and time: 08/07/2020 8:16 PM Age: 35 years old Clinical indication: Other: Fall. Pain; Additional info: Fall, pain TECHNIQUE: Imaging protocol: XR Right knee. Views: 4 or more views. COMPARISON: No relevant prior studies available. FINDINGS: Bones/joints: Joint spaces are normal. No fracture or malalignment. Soft tissues: Normal. IMPRESSION: No fracture or malalignment. Electronically signed by: Elian Earl On 08/07/2020 21:23:55 PM
[2020-08-07] MEDS ORDERED: IBUP80TA PO (21:47)
[2020-08-07 22:19] VITALS: BP 127/73
== END 2020-08-07 22:25 | disposition home or self-care (01) ==
LOC: M ED 19:53
DX: S89.91XA Unspecified injury of right lower leg, initial encounter (principal); V00.311A Fall from snowboard, initial encounter; Y92.410 Unspecified street and highway as the place of occurrence of the external cause; Y93.23 Activity, snow (alpine) (downhill) skiing, snowboarding, sledding, tobogganing and snow tubing; Y99.8 Other external cause status; F17.200 Nicotine dependence, unspecified, uncomplicated; M79.7 Fibromyalgia; Z79.899 Other long term (current) drug therapy; Z88.0 Allergy status to penicillin; Z88.6 Allergy status to analgesic agent

== ENCOUNTER → 2020-09-10 | Outpatient (CLI) | payer OTHER ==
[~2020-09-10] MED LIST changes: +IBUP-1022; +IBUP80TA PO; +SM P325T2
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
== END ==
LOC: M PAIN 09:15
PROVIDERS: ATTEND Nurse Practitioner Family
DX: M79.7 Fibromyalgia (principal); F17.210 Nicotine dependence, cigarettes, uncomplicated; Z88.0 Allergy status to penicillin; Z88.6 Allergy status to analgesic agent; Z79.899 Other long term (current) drug therapy

== ENCOUNTER → 2020-10-22 | Outpatient (CLI) | payer OTHER ==
--- NOTE | 2020-10-26 23:55 | ECWPNPC ---
PATIENT NAME: CLARISSA ROMERO : 1985 GENDER: FEMALE VISIT DATE: 10/22/2020 DISCHARGE DATE: 10/22/20 0958 VISIT LOCKED DATE TIME: PHYSICIAN: ANTONELLA WARE RESOURCE: ANTONELLA WARE REASON FOR APPOINTMENT 1. U TOX/6 WEEKS REVIEW TRAMADOL/PILL COUNT IDENTIFICATION/NURSE VISIT ALLERGIES NO[ALLERGIES VERIFIED] ASSESSMENTS CHRONIC PRESCRIPTION OPIATE USE - Z79.891 (PRIMARY) OTHER CHRONIC PAIN - G89.29 TREATMENT CHRONIC PRESCRIPTION OPIATE USE LAB: [facility] EDI CARRASCOJACINTO 10/22/2020 9:48:38 AM > TRAMADOL @10PM PATIENT MEDICATION INVENTORY #1PRESCRIPTON #TRAMADOLDATE OF RX ON BOTTLE09/16/2020RUG AND TCULUGBI24 MGFORMULATIONTABVERIFIED DRUG [id number],KAREN 10/22/2020 10:15:44 AM > Gale SCOTT RN VERIFIED Luke VIVAS RN VERIFIED TOGETHER WITH SHIVAM ROMO 10/22/2020 10:20:57 AM > PRESCRIPTION RX # [id number]. DISPOSITION & COMMUNICATION ELECTRONICALLY SIGNED BY LESLIE MUNOZ ON 10/25/2020 AT 12:32 PM EDT DISCLAIMER : THIS IS A VISIT SUMMARY EXTRACTED FROM THE [employer] CHART. IT IS NOT A COPY OF THE [employer] PROGRESS NOTE. MTDD
== END ==
LOC: M PAIN 09:30
PROVIDERS: ATTEND Nurse Practitioner Family
DX: Z79.891 Long term (current) use of opiate analgesic (principal); G89.29 Other chronic pain

== ENCOUNTER → 2021-11-21 | Outpatient (CLI) | payer OTHER | LOC: M PAIN 11:30 | PROVIDERS: ATTEND Nurse Practitioner Family | DX: M79.7 Fibromyalgia (principal); Z79.891 Long term (current) use of opiate analgesic; M54.50 Low back pain, unspecified; E28.2 Polycystic ovarian syndrome; M19.90 Unspecified osteoarthritis, unspecified site; F17.210 Nicotine dependence, cigarettes, uncomplicated; Z79.899 Other long term (current) drug therapy; Z88.0 Allergy status to penicillin; Z88.6 Allergy status to analgesic agent ==

== ENCOUNTER → 2022-04-01 | Outpatient (CLI) | payer OTHER | LOC: M PAIN 11:30 | PROVIDERS: ATTEND Nurse Practitioner Family | DX: M54.2 Cervicalgia (principal); M79.7 Fibromyalgia; E28.2 Polycystic ovarian syndrome; M54.50 Low back pain, unspecified; M79.10 Myalgia, unspecified site; F17.210 Nicotine dependence, cigarettes, uncomplicated; M19.90 Unspecified osteoarthritis, unspecified site; Z79.891 Long term (current) use of opiate analgesic; Z79.899 Other long term (current) drug therapy; Z88.0 Allergy status to penicillin; Z88.6 Allergy status to analgesic agent ==

== ENCOUNTER → 2022-04-28 | Outpatient (CLI) | payer OTHER | LOC: M LAB 17:23 | PROVIDERS: ATTEND Nurse Practitioner Family | DX: M54.2 Cervicalgia (principal) ==

== ENCOUNTER → 2022-05-08 | Outpatient (CLI) | payer OTHER | LOC: M PAIN 11:30 | PROVIDERS: ATTEND Nurse Practitioner Family | DX: M54.2 Cervicalgia (principal); M79.10 Myalgia, unspecified site; G89.29 Other chronic pain; F17.210 Nicotine dependence, cigarettes, uncomplicated; Z88.0 Allergy status to penicillin; Z88.6 Allergy status to analgesic agent; Z79.899 Other long term (current) drug therapy ==

== ENCOUNTER → 2022-06-05 | Outpatient (CLI) | payer OTHER | LOC: M PAIN 11:00 | PROVIDERS: ATTEND Nurse Practitioner Family | DX: M79.10 Myalgia, unspecified site (principal); M54.2 Cervicalgia; M79.7 Fibromyalgia; M19.90 Unspecified osteoarthritis, unspecified site; E28.2 Polycystic ovarian syndrome; M54.50 Low back pain, unspecified; M25.50 Pain in unspecified joint; F17.210 Nicotine dependence, cigarettes, uncomplicated; Z79.891 Long term (current) use of opiate analgesic; Z79.899 Other long term (current) drug therapy; Z88.0 Allergy status to penicillin; Z88.6 Allergy status to analgesic agent ==

== ENCOUNTER → 2022-08-26 | Outpatient (CLI) | payer OTHER | LOC: M LABSMTC 11:21 | PROVIDERS: ATTEND Anesthesiology | DX: Z01.812 Encounter for preprocedural laboratory examination (principal); Z20.822 Contact with and (suspected) exposure to COVID-19 ==

== ENCOUNTER → 2022-08-28 | Outpatient (CLI) | payer OTHER ==
[~2022-08-28] MED LIST changes: +BUPIVACAINE HCL 0.25% 10ML VIAL As Ordered ONE; +BUPIVACAINE HCL 0.25% 30ML VIAL As Ordered ONE; +TRIAMCINOLONE ACETONIDE SUSP 40MG/ML 1ML VIAL As Ordered ONE; +diazePAM 2 MG TAB As Ordered ONE
== END ==
LOC: M PAIN 15:00
PROVIDERS: ATTEND Anesthesiology
DX: M79.12 Myalgia of auxiliary muscles, head and neck (principal); M79.18 Myalgia, other site; M79.7 Fibromyalgia; M19.90 Unspecified osteoarthritis, unspecified site; E28.2 Polycystic ovarian syndrome; M54.50 Low back pain, unspecified; M25.50 Pain in unspecified joint; Z88.0 Allergy status to penicillin; Z88.6 Allergy status to analgesic agent
CPT/HCPCS: 20553; J3301; S0020

== ENCOUNTER → 2022-11-12 | Outpatient (CLI) | payer OTHER ==
[~2022-11-12] MED LIST changes: -BUPIVACAINE HCL 0.25% 10ML VIAL As Ordered ONE; -BUPIVACAINE HCL 0.25% 30ML VIAL As Ordered ONE; -TRIAMCINOLONE ACETONIDE SUSP 40MG/ML 1ML VIAL As Ordered ONE; -diazePAM 2 MG TAB As Ordered ONE
== END ==
LOC: M PAIN 13:45
PROVIDERS: ATTEND Nurse Practitioner Family
DX: M79.18 Myalgia, other site (principal); M79.7 Fibromyalgia; M19.90 Unspecified osteoarthritis, unspecified site; E28.2 Polycystic ovarian syndrome; M54.50 Low back pain, unspecified; F17.210 Nicotine dependence, cigarettes, uncomplicated; Z79.899 Other long term (current) drug therapy; Z79.891 Long term (current) use of opiate analgesic; Z88.0 Allergy status to penicillin; Z88.6 Allergy status to analgesic agent

== ENCOUNTER → 2022-12-10 | Outpatient (REF) | payer OTHER | LOC: M LAB REF 09:44 | PROVIDERS: ATTEND Student in an Organized Health Care Education/Training Program | DX: R30.0 Dysuria (principal) ==